=== PATIENT | female | born 1980 | race Caucasian/White ===

== ENCOUNTER 2019-09-28 05:35 | Emergency (ER) | payer MEDICAID, OTHER, SELFPAY ==
[~2019-09-28] VITALS: Ht 170.2 cm; Wt 96.0 kg
[2019-09-28 05:38] VITALS: BP 127/51
--- NOTE | 2019-09-28 05:58 | NUR ---
Patient ambulated self to room. Sitting on edge of bed. Provider to bedside for assessment. Awaiting orders.
--- NOTE | 2019-09-28 06:07 | NUR ---
Orders received to give patient ice pack. Ice pack given, awaiting ultrasound then emt to splint
--- NOTE | 2019-09-28 06:22 | NUR ---
Patient out of room. Transported to ultrasound.
--- NOTE | 2019-09-28 06:47 | NUR ---
Patient returned form ultrasound. Awaiting splinting by emergency department filling technician.
--- NOTE | 2019-09-28 06:51 | NUR ---
REPORT FROM BARBARA STRONG. ASSUMED CARE OF PATIENT AT THIS TIME.
[2019-09-28] MEDS ORDERED: OXYcodone/APAP 10/325MG TABLET PO ONE (07:00)
[2019-09-28] MEDS ORDERED: OXYcodone/APAP 10/325MG TABLET ONE (07:01)
--- NOTE | 2019-09-28 07:06 | NUR ---
PATIENT C/O 07/11 WRIST PAIN, SPOKE TO MD, MEDICATION ADMINISTERED PER ORDER. PATIENT STATES SHE WILL CALL [facility] FOR SAFE DC HOME. EMT AT BEDSIDE FOR SPLINT, PATIENT TO BE DC'D AFTER.
--- NOTE | 2019-09-28 07:32 | NUR ---
Patient/Caregiver given discharge instructions and they have confirmed that they understand the instructions. Splint on patient, CMS intact. Patient ambulatory with steady gait to DC desk.
== END 2019-09-28 07:34 | disposition home or self-care (01) ==
LOC: ED 07:10
DX: S62.101A Fracture of unspecified carpal bone, right wrist, initial encounter for closed fracture (principal); R60.0 Localized edema; X58.XXXA Exposure to other specified factors, initial encounter; Y93.89 Activity, other specified; Y92.009 Unspecified place in unspecified non-institutional (private) residence as the place of occurrence of the external cause; Y99.8 Other external cause status
CPT/HCPCS: 29125; 99284

== ENCOUNTER 2020-01-15 11:03 | Emergency (ER) | payer MEDICAID ==
--- NOTE | 2020-01-15 11:16 | NUR ---
NA X 1
--- NOTE | 2020-01-15 11:37 | NUR ---
NA X 2
--- NOTE | 2020-01-15 11:51 | NUR ---
NA X 3
== END 2020-01-15 11:58 | disposition left against medical advice (07) ==
LOC: ED 11:52
DX: R05 Cough (principal); Z53.21 Procedure and treatment not carried out due to patient leaving prior to being seen by health care provider

== ENCOUNTER 2020-01-15 15:30 | Emergency (ER) | payer MEDICAID ==
[~2020-01-15] VITALS: Ht 170.2 cm; Wt 89.0 kg
[2020-01-15 15:44] VITALS: BP 130/80
[2020-01-15 16:55] LABS: BASOPHILS # (AUTO) 0.04 x10^3/uL (0-0.1); BASOPHILS % (AUTO) 1 % (0-1); EOSINOPHILS # (AUTO) 0.21 x10^3/uL (0-0.4); EOSINOPHILS % (AUTO) 2 % (1-7); LYMPHOCYTES # (AUTO) 3.43 x10^3/uL (1-3.4); LYMPHOCYTES % (AUTO) 37 % (22-44); MD NO; MEAN CORPUSCULAR HGB CONC 33.2 g/dL (32.4-35.8); MEAN CORPUSCULAR VOLUME 87.5 fL (80-100); MEAN PLATELET VOLUME 9.2 fL (7.4-10.4); MONOCYTES # (AUTO) 0.66 x10^3/uL (0.2-0.8); MONOCYTES % (AUTO) 7 % (2-9); NEUTROPHILS # (AUTO) 5.01 x10^3/uL (1.8-6.8); NEUTROPHILS % (AUTO) 54 % (42-75); PLATELET COUNT 265 x10^3/uL (130-400); RED BLOOD COUNT 4.37 x10^6/uL (3.82-5.3); RED CELL DISTRIBUTION WIDTH 14.3 % (9.6-15.2)
[2020-01-15 17:08] LABS: ALANINE AMINOTRANSFERASE 22 U/L (12-78); ALBUMIN 3.7 g/dL (3.4-5.0); ANION GAP 4 mmol/L (5-15); CALCIUM 10.5 mg/dL (8.5-10.1); CHLORIDE 114 mmol/L (98-107); CREATININE 1.12 mg/dL (0.55-1.02)
[2020-01-15 17:12] LABS: ALKALINE PHOSPHATASE 103 U/L (45-117); BILIRUBIN,TOTAL 0.4 mg/dL (0.2-1.0); TOTAL PROTEIN 7.5 g/dL (6.4-8.2)
== END 2020-01-15 17:54 | disposition home or self-care (01) ==
LOC: ED 17:48
DX: L03.114 Cellulitis of left upper limb (principal); L03.113 Cellulitis of right upper limb; M79.662 Pain in left lower leg; M79.661 Pain in right lower leg; R60.0 Localized edema; J20.8 Acute bronchitis due to other specified organisms; F17.210 Nicotine dependence, cigarettes, uncomplicated
CPT/HCPCS: 36415; 71046; 80053; 83880; 85025; 93005; 99285; 99406

== ENCOUNTER 2020-01-16 09:02 | Emergency (ER) | payer MEDICAID ==
[~2020-01-16] VITALS: Ht 170.2 cm; Wt 88.4 kg
[2020-01-16 09:08] VITALS: BP 120/56
--- NOTE | 2020-01-16 09:27 | NUR ---
PT HERE WITH C/O RIGHT KNEE PAIN, STATES SHE WAS SEEN YESTERDAY AND TOOK IBUPROFEN AT HOME WITH SOME RELIEF. PT NOW STATES PAIN IS 12/10. PT AMBULATORY WITH STEADY GAIT.
--- NOTE | 2020-01-16 09:47 | NUR ---
PT AMBULATORY OUT OF ROOM TO DESK, STATES "I DON'T HAVE TIME TO WAIT ALL DAY, I NEED TO GO." PT STILL NOT SEEN BY PA. AMA FORM SIGNED.
== END 2020-01-16 10:22 | disposition left against medical advice (07) ==
LOC: ED 09:30
DX: M25.561 Pain in right knee (principal); Z53.21 Procedure and treatment not carried out due to patient leaving prior to being seen by health care provider

== ENCOUNTER 2020-01-16 15:52 | Emergency (ER) | payer MEDICAID ==
[~2020-01-16] VITALS: Ht 170.2 cm; Wt 88.0 kg
[2020-01-16 16:11] VITALS: BP 126/62
--- NOTE | 2020-01-16 16:37 | NUR ---
PT HERE WITH C/O RIGHT KNEE PAIN, STATES SHE WAS SEEN EARLIER AND LEFT BEFORE BEING SEEN.
[2020-01-16] MEDS ORDERED: KETOROLAC 30 MG/1 ML ONE (16:50)
--- NOTE | 2020-01-16 16:55 | NUR ---
PT MEDICATED PER ORDER. TAKEN TO XRAY.
[2020-01-16] MEDS ORDERED: KETOROLAC 30 MG/1 ML IM ONE (17:00)
--- NOTE | 2020-01-16 17:34 | NUR ---
Patient/Caregiver given discharge instructions and they have confirmed that they understand the instructions. Patient ambulatory with steady gait.
== END 2020-01-16 18:00 | disposition home or self-care (01) ==
LOC: ED 17:46
DX: G89.11 Acute pain due to trauma (principal); M25.561 Pain in right knee; F17.200 Nicotine dependence, unspecified, uncomplicated; Z72.9 Problem related to lifestyle, unspecified
CPT/HCPCS: 73564; 96372; 99283; J1885

== ENCOUNTER 2020-01-16 19:03 | Emergency (ER) | payer MEDICAID ==
[~2020-01-16] VITALS: Ht 170.2 cm; Wt 88.6 kg
[2020-01-16 19:05] VITALS: BP 130/74
--- NOTE | 2020-01-16 19:57 | NUR ---
Pt left before being seen by this RN or other medical staff.
== END 2020-01-16 19:58 | disposition home or self-care (01) ==
LOC: ED 19:52
DX: M25.561 Pain in right knee (principal); F10.20 Alcohol dependence, uncomplicated; R60.0 Localized edema; F17.210 Nicotine dependence, cigarettes, uncomplicated; Y90.0 Blood alcohol level of less than 20 mg/100 ml
CPT/HCPCS: 99281

== ENCOUNTER 2021-05-09 13:30 | Emergency (ER) | payer MEDICAID ==
--- NOTE | 2021-05-09 13:58 | NUR ---
CALLED FOR TRIAGE, NO ANSWER
--- NOTE | 2021-05-09 14:13 | NUR ---
CALLED FOR TRIAGE, NO ANSWER
== END 2021-05-09 14:14 | disposition left against medical advice (07) ==
LOC: ED 14:05
DX: R30.9 Painful micturition, unspecified (principal); Z53.21 Procedure and treatment not carried out due to patient leaving prior to being seen by health care provider